=== PATIENT | female | born 1965 | race Hispanic/Latino ===

== ENCOUNTER 2017-07-13 08:10 | Outpatient (CLI) | payer OTHER ==
--- NOTE | 2017-07-13 16:02 | Mammography Report ---
BILATERAL DIGITAL SCREENING MAMMOGRAM with CAD: 07/13/17 08:10:00 CLINICAL: Routine screening. COMPARISON:05/21/15 FINDINGS: The breasts are mostly fatty with a few bilateral residual retroareolar fibroglandular densities. No mass, architectural distortion or suspicious calcifications. IMPRESSION: No mammographic evidence of malignancy. BI-RADS CATEGORY: 1 - - Negative RECOMMENDATION: Routine mammographic screening in one year. COMMENT: Patient follow-up letters are generated by our [employer] application.
== END 2017-07-13 08:11 | disposition home or self-care (01) ==
LOC: SPVWC 08:10
PROVIDERS: ATTEND Family Medicine
DX: Z12.31 Encounter for screening mammogram for malignant neoplasm of breast (principal)
CPT/HCPCS: 77067